=== PATIENT | female | born 1975 | race Two or more races ===

== ENCOUNTER 2023-12-16 06:22 | Emergency (ER) | payer OTHER ==
[~2023-12-16] VITALS: Ht 167.6 cm; Wt 67.1 kg
[2023-12-16] MEDS ORDERED: CEFTRIAXONE SODIUM 2,000 MG VIAL IM STA (07:27)
== END 2023-12-16 07:49 | disposition home or self-care (01) ==
LOC: ER 06:22
DX: J03.80 Acute tonsillitis due to other specified organisms (principal); J20.9 Acute bronchitis, unspecified

== ENCOUNTER 2023-12-26 07:49 | Emergency (ER) | payer OTHER ==
[~2023-12-26] VITALS: Ht 167.6 cm; Wt 65.3 kg
== END 2023-12-26 09:54 | disposition home or self-care (01) ==
LOC: ER 07:50
DX: R53.81 Other malaise (principal); J03.90 Acute tonsillitis, unspecified